=== PATIENT | male | born 1990 | race Caucasian/White ===

== ENCOUNTER 2019-08-13 10:08 | Emergency (ER) | payer OTHER, SELFPAY ==
[2019-08-13 10:15] VITALS: BP 142/79; PULSE 61; RESP 20; TEMP 36.6; O2SAT 98
--- NOTE | 2019-08-13 10:57 | PC.NURSE ---
Report to Deb Luna
--- NOTE | 2019-08-13 11:02 | ED.BACK ---
HPI - Back Pain/Injury General Chief Complaint: Back Pain/Injury Stated Complaint: Lifting at work and fulled something in back Source: patient Mode of arrival: ambulatory Limitations: no limitations History of Present Illness HPI Narrative: 28 y.o. working at [employer] 5 days ago. While lifting a 110 popund filter case he had acute spasm-like, tight pain in his right upper back which he rates at #3/10. He took off the remainder of the day. Over the next 2 days, the weekend, he had minor discomfort in the AM only. He was painfree until this AM. While lifting a 40 pound filter case he experienced intense spasm pain in the samre area of his right upper back rated #7/10 associated with upper abdominal muscle spasm. The pain was so severe it dropped him to his knees. After about a minute he was able to stand up straight. His pain is currently #6/10, spasm pain, made worse by movement, especially getting out of the car. Laying flat decreases the pain, which remains constant. He denies associated symptoms. He has no radiation and no numbness/weakness in his lower extremities. There is no hx of previous similar pain. Similar Symptoms Previously: No Quality: spasming Treatments prior to arrival: cold therapy Related Data Allergies Allergy/AdvReac Type Severity Reaction Status Date / Time No Known Allergies Allergy Verified 08/13/19 10:24 Review of Systems Constitutional: Constitutional: Denies chills and Denies fever(s) ENT: Denies nasal congestion and Denies sore throat Cardiovascular: Cardiovascular: Denies chest pain Respiratory: Respiratory: Denies dyspnea Gastrointestinal: Gastrointestinal: Denies diarrhea, Denies nausea and Denies vomiting Genitourinary: Genitourinary: Denies dysuria and Denies testicular pain Musculoskeletal: Musculoskeletal: Reports no additional musculoskeletal complaints Integumentary/Breasts: Skin/Breast: Denies rash Neurologic: Denies vertigo Hematologic/Lymphatic: Hematologic/Lymphatic: Denies easy bleeding PMFSH Past Medical History Medical History (Updated 08/13/19 @ 11:20 by Archie Chao MD) Patient denies significant medical history Family History Family History (Updated 08/13/19 @ 11:21 by Archie Chao MD) Mother Hyperlipidemia Father Hypertension Social History Social History (Updated 08/13/19 @ 11:22 by Archie Chao MD) Smoking status: Never smoker Alcohol use details: on some weekends Exam Const: General: no acute distress; No ill appearing HENMT: Other: no scalp tenderness Eyes: EOM: EOMs intact bilaterally Neck: Neck: normal visual inspection and no lymphadenopathy Chest: Chest palpation & inspection: normal inspection of the chest Resp: Auscultation: clear to auscultation bilaterally Cardio: Rhythm: regular rhythm GI: Other: Points to the upper abdominal area where he has spasm discomfort. This is not changed with palpation. No H/S/M : General: Yes no CVA tenderness Back/Spine/Pelvis: Other: Tender right upper back over the rhomboid, infraspinatus and lateral latissimus dorsi muscles. Full shoulder abduction increases the pain; othewise full, painless shoulder ROM. No swelling, discoloration or muscles spasm. Skin: General skin exam: normal color Neuro: Other: SLR is negative. Light touch to feet is intact. Extrem: General: normal to inspection Psych: Mental Status: mental status grossly normal Course Course Emergency Course: Dx. of upper back muscle strain and spasm and abd. wall spasm discussed with student. He will stay off work today and the next 2 days and f/u with Dr. Adhikari. Vital Signs Vital signs: Vital Signs Temperature 36.6 C 08/13/19 10:15 Pulse Rate 61 08/13/19 10:15 Respiratory Rate 20 08/13/19 10:15 Blood Pressure 142/79 H 08/13/19 10:15 Pulse Oximetry 98 08/13/19 10:15 Temperature 36.6 C 08/13/19 10:15 Pulse Rate 61 08/13/19 10:15 Respiratory Rate
[2019-08-13 11:08] VITALS: RESP 14
== END 2019-08-13 11:10 | disposition home or self-care (01) ==
PROVIDERS: Emergency Provider Family Medicine; PCP Family Medicine
DX: S39.011A Strain of muscle, fascia and tendon of abdomen, initial encounter (principal); X50.0XXA Overexertion from strenuous movement or load, initial encounter
CPT/HCPCS: 99283